=== PATIENT | male | born 1935 ===

== ENCOUNTER 2017-01-12 01:42 | Inpatient (IN) | payer OTHER ==
--- NOTE | 2017-01-12 02:03 | C.PDOC ---
History Of Present Illness Patient presents with 3 days of worsening productive cough. No chest pain or palpitations. Speakju fagann complete sentences. Tolerating po. Has been taking OTC , but no improvement of symptoms Time Seen by Provider: 01/12/17 02:02 Chief Complaint (Nursing): Cough, Cold, Congestion History Per: Patient History/Exam Limitations: no limitations Onset/Duration Of Symptoms: Days (3) Initiating Event: Upper Respiratory Illness Exacerbating Factor(s): Coughing Current Respiratory Medications: See Home Med List Severity: Moderate Pain Scale Rating Of: 4 Associated Symptoms: Productive Cough (greenish, brown). denies: Fever, Chills Reports Recently: Seen In ED, Treated By A Physician Recent travel outside of the [place]: No Additional History Per: Patient Past Medical History Reviewed: Historical Data, Nursing Documentation, Vital Signs Vital Signs: Last Vital Signs Temp 97.9 F 01/12/17 01:52 Pulse 73 01/12/17 01:52 Resp 20 01/12/17 01:52 BP 159/82 H 01/12/17 01:52 Pulse Ox 94 L 01/12/17 02:49 - Medical History PMH: HTN Surgical History: Pacemaker (LT CW WALL) Family History: States: No Known Family Hx - Social History Hx Alcohol Use: No Hx Substance Use: No - Immunization History Hx Tetanus Toxoid Vaccination: No Hx Influenza Vaccination: No Hx Pneumococcal Vaccination: No Review Of Systems Constitutional: Positive for: Malaise. Negative for: Fever, Chills Eyes: Negative for: Redness Cardiovascular: Negative for: Chest Pain, Palpitations Respiratory: Positive for: Cough, Shortness of Breath. Negative for: Hemoptysis Gastrointestinal: Negative for: Nausea, Vomiting, Abdominal Pain Genitourinary: Negative for: Dysuria Musculoskeletal: Negative for: Back Pain Skin: Negative for: Rash Neurological: Negative for: Weakness Psych: Negative for: Anxiety Physical Exam - Physical Exam Appears: No Acute Distress Skin: Warm, Dry Head: Normacephalic Eye(s): bilateral: Normal Inspection Oral Mucosa: Moist Neck: Supple Chest: Symmetrical Cardiovascular: Rhythm Regular Respiratory: Decreased Breath Sounds, No Rales, Rhonchi (throught out) Gastrointestinal/Abdominal: Soft, No Tenderness, No Distention Back: No CVA Tenderness Extremity: Normal ROM Extremity: Bilateral: Atraumatic, Normal Color And Temperature Pulses: Left Dorsalis Pedis: Normal, Right Dorsalis Pedis: Normal Neurological/Psych: Oriented x3, Normal Speech, Normal Cognition Gait: Steady ED Course And Treatment - Laboratory Results Result Diagrams: 01/12/17 02:11 01/12/17 02:11 ECG: Interpreted By Me, Viewed By Me ECG Rhythm: Sinus Rhythm (71), Nonspecific Changes (poss ivcd) O2 Sat by Pulse Oximetry: 94 Pulse Ox Interpretation: Normal - Radiology CXR: Interpreted by Me, Viewed By Me CXR Interpretation: Yes: Cardiomegaly, Other (pacer left chest, mild vasc congestion, rob infiltrate) Disposition Discussed With Dr.: Jose Smith Comment: accepted the pt on his service and took over the care at 3:42 AM Counseled Patient/Family Regarding: Studies Performed, Diagnosis - Disposition Disposition: HOSPITALIZED Disposition Time: 02:02 Condition: FAIR Forms: [facility] (Kazakh) - POA Present On Arrival: Poor Glycemic Control - Clinical Impression Clinical Impression: CHF (congestive heart failure), Pneumonia Decision To Admit - Pt Status Changed To: Hospital Disposition Of: Inpatient - Admit Certification Admit to Inpatient:: After my assessment, the patient will require hospitalization for at least two midnights. This is because of the severity of symptoms shown, intensity of services needed, and/or the medical risk in this patient being treated as an outpatient. - InPatient: Physician Admission Certification: I certify that this patient requires 2 or more midnights of care for the following reason:: After my assessment, the patient will require hospitalization for at least two midnights. This is because of the severity of symptoms shown, intensity of services needed, and/or the medical risk in this patient being treated as an outpatient. - . Bed Request Type: Telemetry Admitting Physician: Jose Smith Patient Diagnosis: CHF (congestive heart failure), Pneumonia
[2017-01-12] MEDS ORDERED: Albuterol-Ipratrop 3 mg / 0.5 (3 ml) UD ONE ×2 (02:15→02:37)
[2017-01-12] MEDS: Albuterol-Ipratrop 3 mg / 0.5 (3 ml) UD IH SCH ×3 (02:15→02:50)
[2017-01-12 02:16] LABS: BASO % 0.3 % (0.0-2.0); EOS % 0.1 % (0.0-4.0); HEMATOCRIT 41.4 % (35.0-51.0); LYMPH # 0.5 K/uL (1.0-4.3); LYMPH % 4.6 % (20.0-40.0); MEAN CELL VOLUME 92.2 fL (80.0-94.0); MEAN CORPUSCULAR HEMOGLOBIN 31.7 pg (27.0-31.0); MEAN CORPUSCULAR HGB CONC 34.3 g/dL (33.0-37.0); MEAN PLATELET VOLUME 8.2 fL (7.2-11.7); MONO # 1.2 K/uL (0.0-0.8); MONO % 10.7 % (0.0-10.0); PLATELET COUNT 141 K/uL (130-400); RED CELL DISTRIBUTION WIDTH 14.3 % (11.5-14.5); WHITE BLOOD COUNT 11.6 K/uL (4.8-10.8)
[2017-01-12 02:23] LABS: CHLORIDE 99 mmol/L (98-107)
[2017-01-12 02:24] LABS: POTASSIUM 4.2 mmol/L (3.6-5.2); SODIUM 140 mmol/L (132-148)
[2017-01-12 02:25] LABS: INR 1.5
[2017-01-12 02:26] LABS: BILIRUBIN,TOTAL 2.9 mg/dL (0.2-1.3); CARBON DIOXIDE 22 mmol/L (22-30); GFR AFRICAN-AMERICAN > 60
[2017-01-12 02:27] LABS: ALB/GLOB RATIO 1.7 (1.0-2.1); ALKALINE PHOSPHATASE 80 U/L (38-126); ALT/SGPT 85 U/L (21-72); AST/SGOT 65 U/L (17-59); BLOOD UREA NITROGEN 30 mg/dL (9-20); CALCIUM 8.7 mg/dl (8.6-10.4); GLUCOSE,RANDOM 136 mg/dL (75-110); TOTAL PROTEIN 6.9 g/dL (6.3-8.3)
[2017-01-12 02:52] LABS: VENOUS BLOOD GAS PCO2 40 mmHg (40-60); VENOUS BLOOD PH 7.43 (7.32-7.43)
[2017-01-12 03:00] LABS: BASOPHIL 1 % (0-2); NEUTROPHIL 80 % (50-75); TOTAL CELLS COUNTED 100
[2017-01-12] MEDS ORDERED: Piperacillin/Tazobact 3.375 gm 100 ML IVPB STA (03:30)
[2017-01-12] MEDS ORDERED: Piperacillin/Tazobact 3.375 gm 100 ML IVPB ONE (04:00)
[2017-01-12 04:33] LABS: RBC URINE 3 /hpf (0-3); URINE BILIRUBIN NEGATIVE (NEGATIVE); URINE BLOOD 2+ (NEGATIVE); URINE COLOR Yellow (YELLOW); URINE GLUCOSE (UA) NORMAL (Normal); URINE KETONE NEGATIVE (NEGATIVE); URINE LEUKOCYTE ESTERASE NEG Leu/uL (Negative); URINE PROTEIN 1+ mg/dL (NEGATIVE); WBC URINE 2 /hpf (0-5)
--- NOTE | 2017-01-12 08:06 | RAD ---
PROCEDURE: CHEST RADIOGRAPH, 1 VIEW HISTORY: Shortness of breath COMPARISON: None available. FINDINGS: LUNGS: Biapical pleural thickening with upper lobe granulomatous changes. Mild to moderate venous congestion. Linear atelectatic changes at the right costophrenic angle. PLEURA: As above. CARDIOVASCULAR: Cardiomegaly. Left-sided pacemaker lead. OSSEOUS STRUCTURES: No significant abnormalities. VISUALIZED UPPER ABDOMEN: Normal. OTHER FINDINGS: None. IMPRESSION: Biapical pleural thickening with upper lobe granulomatous changes. Mild to moderate venous congestion. Linear atelectatic changes at the right costophrenic angle.
[2017-01-12] MEDS: guaiFENesin DM 200 mg-20 mg/10 ml UD PO SCH ×2 (09:36→17:48)
[2017-01-12] MEDS: Albuterol-Ipratrop 3 mg / 0.5 (3 ml) UD IH PRN ×2 (13:12→19:13)
[2017-01-12] MEDS: Azithromycin 250 MG in Sodium Chloride 0.9% 250 ML IVPB SCH (13:35)
[2017-01-13 07:45] LABS: CHLORIDE 99 mmol/L (98-107); POTASSIUM 3.6 mmol/L (3.6-5.2); SODIUM 139 mmol/L (132-148)
[2017-01-13 07:47] LABS: ALB/GLOB RATIO 1.3 (1.0-2.1); AST/SGOT 90 U/L (17-59); BILIRUBIN,DIRECT 0.3 mg/dL (0.0-0.4); BILIRUBIN,TOTAL 1.3 mg/dL (0.2-1.3); BLOOD UREA NITROGEN 39 mg/dL (9-20); CARBON DIOXIDE 30 mmol/L (22-30); GFR AFRICAN-AMERICAN > 60; TOTAL PROTEIN 6.7 g/dL (6.3-8.3)
[2017-01-13 07:48] LABS: ALKALINE PHOSPHATASE 81 U/L (38-126); ALT/SGPT 82 U/L (21-72); CALCIUM 9.3 mg/dl (8.6-10.4); GLUCOSE,RANDOM 89 mg/dL (75-110)
[2017-01-13] MEDS: guaiFENesin DM 200 mg-20 mg/10 ml UD PO SCH ×2 (09:40→17:48)
--- NOTE | 2017-01-13 12:21 | HP ---
DATE: HISTORY OF PRESENT ILLNESS: The patient is an 81 years old male with history of multiple medical problems presented to emergency room with symptoms of congestion and cough for 4 days' duration. The patient was evaluated in the emergency room and he was found to have pulmonary congestion with increased proBNP to 9000. The patient was admitted for further management. The patient admits that he had fever and chills at home also. The patient was also started on IV antibiotics. The patient carries a diagnosis of congestive heart failure secondary to dilated cardiomyopathy, status post ICD placement. REVIEW OF SYSTEMS: Other review of systems is negative. ALLERGIES: NO KNOWN ALLERGIES. HOME MEDICATIONS: Include Diovan 160 mg daily, Coreg 6.25 mg twice a day, and aspirin 81 mg daily. SOCIAL HISTORY: No history of smoking, ETOH, or substance abuse. FAMILY HISTORY: Noncontributory. PAST MEDICAL HISTORY: As above. PHYSICAL EXAMINATION: GENERAL: The patient is in bed, comfortable, and not in any cardiopulmonary distress. VITAL SIGNS: Blood pressure 121/59, temperature 98.7, respiratory rate 20, and pulse 70. HEENT: Pupils equal and reactive to light. Normal appearing mucosa of the conjunctivae, oropharyngeal, and nasal membrane mucosa. NECK: Supple. No JVD. No carotid bruit. No lymph node. No thyromegaly. CHEST AND LUNGS: Bilaterally symmetrical expansion with good air exchange. No rales. No rhonchi. The patient has bilateral rhonchi with prolonged expiration. CARDIOVASCULAR: PMI not localized. S1 and S2. No additional sounds. ABDOMEN: Normoactive bowel sounds. No tenderness. No organomegaly. No masses. EXTREMITIES: No cyanosis. No clubbing. No edema. CENTRAL NERVOUS SYSTEM: Alert, awake, and oriented x3. No neurological deficits could be appreciated. ASSESSMENT: 1. Exacerbation of congestive heart failure, acute on top of chronic systolic and diastolic. 2. Clinical pneumonia. 3. Hyperactive airways with bronchospasm. PLAN: Continue IV diuretics as well as IV antibiotics and start the patient on DuoNeb nebulizer. Jose Smith MD
[2017-01-13] MEDS: Azithromycin 250 MG in Sodium Chloride 0.9% 250 ML IVPB SCH (12:37)
[2017-01-13] MEDS: MethylPREDNISolone 40 mg Vial IVP SCH ×2 (12:38→19:24)
[2017-01-14 01:01] VITALS: RESP 20
--- NOTE | 2017-01-14 02:03 | PN ---
SUBJECTIVE: The patient is seen today on 01/13/2017, he still has wheezing and cough. PHYSICAL EXAMINATION VITAL SIGNS: Blood pressure is 153/67, temperature 98.4, respiratory rate 20, and pulse 72. HEENT: Pupils equal and reactive to light. Normal appearing mucosa of the conjunctivae, oropharyngeal, and nasal membrane mucosa. NECK: Supple. No JVD. No carotid bruit. No lymph node. No thyromegaly. CHEST AND LUNGS: Bilaterally symmetrical expansion with good air exchange. No rales. The patient has bilateral rhonchi is scattered all over the lung miller. CARDIOVASCULAR: PMI not localized. S1 and S2. No additional sounds. ABDOMEN: Normoactive bowel sounds. No tenderness. No organomegaly. No masses. EXTREMITIES: No cyanosis. No clubbing. No edema. CENTRAL NERVOUS SYSTEM: Alert, awake, and oriented x2. No neurological deficits could be appreciated. ASSESSMENT: 1. Community-acquired pneumonia. 2. Hyperactive airway with bronchospasm. 3. Congestive heart failure. PLAN: Continue current medications of Solu-Medrol 40 mg IV q. 8 hours and continue current antibiotics and bronchodilators. Jose Smith MD
[2017-01-14] MEDS: MethylPREDNISolone 40 mg Vial IVP SCH ×3 (02:53→19:10)
[2017-01-14] MEDS: guaiFENesin DM 200 mg-20 mg/10 ml UD PO SCH ×2 (10:11→18:07)
[2017-01-14] MEDS: Azithromycin 250 MG in Sodium Chloride 0.9% 250 ML IVPB SCH (12:17)
[2017-01-14] MEDS: Sodium Chloride 0.9% 1,000 ML IV SCH ×2 (12:18→23:49)
[2017-01-14] MEDS: Promethazine DM 6.25 mg-15 mg/5 ml Syrup PO SCH ×2 (13:54→18:07)
[2017-01-14] MEDS ORDERED: Influenza Virus Vaccine (Afluria Inactive dont use ) IM ONE (14:00)
[2017-01-14] MEDS ORDERED: Pneumococcal 23-Valent Vaccine IM ONE (14:00)
[2017-01-15] MEDS: MethylPREDNISolone 40 mg Vial IVP SCH ×2 (02:55→10:38)
[2017-01-15] MEDS: Albuterol-Ipratrop 3 mg / 0.5 (3 ml) UD IH PRN (07:19)
[2017-01-15 08:15] LABS: CHLORIDE 98 mmol/L (98-107)
[2017-01-15 08:16] LABS: POTASSIUM 3.8 mmol/L (3.6-5.2); SODIUM 138 mmol/L (132-148)
[2017-01-15 08:18] LABS: ALB/GLOB RATIO 1.4 (1.0-2.1); ALKALINE PHOSPHATASE 68 U/L (38-126); AST/SGOT 39 U/L (17-59); BILIRUBIN,TOTAL 0.7 mg/dL (0.2-1.3); BLOOD UREA NITROGEN 46 mg/dL (9-20); CARBON DIOXIDE 24 mmol/L (22-30); GFR AFRICAN-AMERICAN > 60
[2017-01-15 08:19] LABS: ALT/SGPT 63 U/L (21-72); CALCIUM 8.9 mg/dl (8.6-10.4); GLUCOSE,RANDOM 168 mg/dL (75-110)
--- NOTE | 2017-01-15 08:57 | PN ---
DATE: 01/14/2017 SUBJECTIVE: The patient is seen today, 01/14/2017. He is not in any cardiopulmonary distress. Patient has cough and wheezing is less. PHYSICAL EXAMINATION VITAL SIGNS: Blood pressure is 134/75, temperature 97.9, respiratory rate 20, and pulse 62. HEENT: Pupils are equal and reactive to light. Normal-appearing mucosa of the conjunctivae, oropharyngeal and nasal membrane mucosa. NECK: Supple. No JVD. No carotid bruits. No lymph node. No thyromegaly. CHEST AND LUNGS: Bilateral symmetrical expansion. Good air exchange. No rales, no rhonchi. CARDIOVASCULAR SYSTEM: PMI not localized. S1 and S2. No additional sounds. ABDOMEN: Normoactive bowel sounds. No tenderness. No organomegaly. No masses. EXTREMITIES: No cyanosis, no clubbing, no edema. CENTRAL NERVOUS SYSTEM: Alert, awake, and oriented x3. No neurological deficit could be appreciated. ASSESSMENT: Exacerbation of chronic obstructive pulmonary disease, pneumonia with hyperactive airways, congestive heart failure, and rhabdomyolysis. PLAN: We will start the patient on IV fluids. Continue current antibiotics and steroids. Check CPK in the morning and chemistry. Jose Smith MD
[2017-01-15] MEDS ORDERED: Influenza Virus Vaccine (Afluria Inactive dont use ) IM ONE (10:00)
[2017-01-15] MEDS ORDERED: Pneumococcal 23-Valent Vaccine IM ONE (10:00)
[2017-01-15] MEDS: Promethazine DM 6.25 mg-15 mg/5 ml Syrup PO SCH ×2 (10:37→13:04)
[2017-01-15] MEDS: guaiFENesin DM 200 mg-20 mg/10 ml UD PO SCH ×2 (10:37→18:23)
[2017-01-15] MEDS ORDERED: Albuterol-Ipratrop 3 mg / 0.5 (3 ml) UD IH SCH (12:00)
[2017-01-15] MEDS: Azithromycin 250 MG in Sodium Chloride 0.9% 250 ML IVPB SCH (13:03)
[2017-01-15] MEDS: Nystatin 100,000 Units/ml Oral Susp 5 ml UD PO SCH ×2 (18:24→22:23)
--- NOTE | 2017-01-15 22:51 | PN ---
DAILY PROGRESS NOTE DATE: 01/15/2017 SUBJECTIVE: The patient is seen today 01/15/2017. He is having less cough. The patient has slight sore throat. PHYSICAL EXAMINATION VITAL SIGNS: Blood pressure 120/70, temperature 98.6, respiratory rate 18 and pulse is 82. HEENT: Pupils equal and reactive to light. Normal appearing mucosa of the conjunctivae. NECK: Supple. No JVD. No carotid bruit. No lymph node. No thyromegaly. CHEST AND LUNGS: Bilateral symmetrical expansion. Good air exchange. No rales. A few scattered rhonchi. CARDIOVASCULAR SYSTEM: PMI not localized. S1 and S2. No additional sounds. ABDOMEN: Normoactive bowel sounds. No tenderness. No organomegaly. No masses. EXTREMITIES: No cyanosis. No clubbing. No edema. CENTRAL NERVOUS SYSTEM: Alert, awake, and oriented x3. No neurological deficits could be appreciated. ASSESSMENT: 1. Pneumonia. 2. Acute bronchitis. 3. Status post pacemaker placement. 4. Congestive heart failure secondary to dilated cardiomyopathy. PLAN: Continue current IV antibiotics and taper off his steroid and we will give nystatin to swish and swallow for possible pharyngeal candidiasis from the effect of the steroid. Jose Smith MD
[2017-01-16 00:10] VITALS: O2SAT 96
[2017-01-16 08:24] VITALS: BP 156/87; TEMP 97.4
[2017-01-16] MEDS: guaiFENesin DM 200 mg-20 mg/10 ml UD PO SCH (10:18)
[2017-01-16] MEDS: Nystatin 100,000 Units/ml Oral Susp 5 ml UD PO SCH (10:19)
--- NOTE | 2017-01-16 12:01 | CARD ---
APPROVED REPORT EKG Measurement Heart [id number] <Conclusion> V paced rhythm Abnormal ECG
--- NOTE | 2017-01-16 17:12 | CP.PCM.PN ---
Subjective - Date & Time of Evaluation Date of Evaluation: 01/16/17 Time of Evaluation: 11:00 - Subjective Subjective: Alert, awake, no sob or chest pains, NAD. Objective - Vital Signs/Intake and Output Vital Signs (last 24 hours): Temp Pulse Resp BP Pulse Ox 97.4 F L 69 20 156/87 H 96 01/16/17 08:00 01/16/17 08:00 01/16/17 08:00 01/16/17 08:00 01/16/17 08:00 Intake and Output: 01/16/17 01/16/17 06:59 18:59 Output Total 300 Balance -300 - Labs Labs: 01/12/17 02:11 01/15/17 07:28 PT 16.7 SECONDS (9.7-12.2) H 01/12/17 02:11 INR 1.5 01/12/17 02:11 APTT 31 SECONDS (21-34) 01/12/17 02:11 Assessment and Plan - Assessment and Plan (Free Text) Assessment: Patient is seen and examined. Alert and orientedx3, decreased cough and congestion. No acute sob or chest pains. D/W DR Smith, plan to discharge home today on medrol dose pack. Patient agreed with the plan. Advised to follow up in the office in 1 week.
[2017-01-16 18:09] VITALS: PULSE 75
== END 2017-01-16 15:00 | disposition home or self-care (01) | DRG 291 ==
LOC: C.ER 01:42 → C.9E 03:41 → C.5S 04:15
PROVIDERS: ADMIT Internal Medicine; ATTEND Internal Medicine
DX: I11.0 Hypertensive heart disease with heart failure (principal); I50.43 Acute on chronic combined systolic (congestive) and diastolic (congestive) heart failure; J18.9 Pneumonia, unspecified organism; J44.0 Chronic obstructive pulmonary disease with (acute) lower respiratory infection; I42.0 Dilated cardiomyopathy; J44.1 Chronic obstructive pulmonary disease with (acute) exacerbation; M62.82 Rhabdomyolysis; Z79.82 Long term (current) use of aspirin; Z95.0 Presence of cardiac pacemaker

== ENCOUNTER 2017-02-02 10:39 | Observation (INO) | payer OTHER ==
[2017-02-02 11:45] LABS: BASO # 0.1 K/uL (0.0-0.2); BASO % 1.4 % (0.0-2.0); EOS # 0.1 K/uL (0.0-0.7); HEMOGLOBIN 12.6 g/dL (12.0-18.0); LYMPH # 0.7 K/uL (1.0-4.3); LYMPH % 13.6 % (20.0-40.0); MEAN CELL VOLUME 92.2 fL (80.0-94.0); MEAN CORPUSCULAR HEMOGLOBIN 31.6 pg (27.0-31.0); MEAN CORPUSCULAR HGB CONC 34.3 g/dL (33.0-37.0); MEAN PLATELET VOLUME 7.3 fL (7.2-11.7); MONO # 0.4 K/uL (0.0-0.8); MONO % 6.6 % (0.0-10.0); NEUT # 4.1 K/uL (1.8-7.0); NEUT % 76.4 % (50.0-75.0); RED CELL DISTRIBUTION WIDTH 14.6 % (11.5-14.5); WHITE BLOOD COUNT 5.4 K/uL (4.8-10.8)
[2017-02-02 11:59] LABS: ALBUMIN 3.9 g/dL (3.5-5.0)
[2017-02-02 12:02] LABS: ALB/GLOB RATIO 1.2 (1.0-2.1); AST/SGOT 30 U/L (17-59); GFR AFRICAN-AMERICAN > 60; GFR NON-AFRICAN AMERICAN > 60
[2017-02-02 12:03] LABS: ALT/SGPT 39 U/L (21-72); BLOOD UREA NITROGEN 25 mg/dL (9-20); CALCIUM 9.2 mg/dl (8.6-10.4)
--- NOTE | 2017-02-02 12:37 | C.PDOC ---
History Of Present Illness 81 y/o male c/o left foot pain and swelling for 10 days with no hx of trauma. pt has been seen by his pmd for this and prescribed colchicine and calamine lotion, no hx of gout in past. pt reports this is not helping with the pain. denies fever and chills. Time Seen by Provider: 02/02/17 11:13 Chief Complaint (Nursing): Lower Extremity Problem/Injury History Per: Patient History/Exam Limitations: no limitations Onset/Duration Of Symptoms: Days (10) Current Symptoms Are (Timing): Still Present Severity: Moderate Pain Scale Rating Of: 6 Recent travel outside of the [place]: No Past Medical History Reviewed: Historical Data, Nursing Documentation, Vital Signs Vital Signs: Last Vital Signs Temp 97.5 F L 02/02/17 15:53 Pulse 70 02/02/17 15:53 Resp 20 02/02/17 15:53 BP 142/76 02/02/17 15:53 Pulse Ox 97 02/02/17 15:53 - Medical History PMH: CHF, HTN Surgical History: Pacemaker Family History: States: Unknown Family Hx - Social History Hx Alcohol Use: Yes Hx Substance Use: No - Immunization History Hx Tetanus Toxoid Vaccination: No Hx Influenza Vaccination: No Hx Pneumococcal Vaccination: No Review Of Systems Constitutional: Negative for: Fever, Chills Cardiovascular: Negative for: Chest Pain Respiratory: Negative for: Cough, Shortness of Breath Gastrointestinal: Negative for: Abdominal Pain Musculoskeletal: Positive for: Foot Pain (left) Skin: Negative for: Rash Neurological: Negative for: Weakness, Numbness Physical Exam - Physical Exam Appears: Non-toxic, No Acute Distress Skin: Warm, Dry, Other (left foot erythematous and warm, exquisitely tender to 4th and 5th metatarsal, no deformity noted. ) Extremity: Other (+1 bilateral dp pulses, chronic skin changes bilateral lower legs. no posterior calf tenderness, no pedal edema. left foot with mild swelling. redness and tender. no deformity noted. nails with onchomycotic appearance, whitish skin between toes left foot with some residual pink (likley calamine) ) Neurological/Psych: Oriented x3, Normal Speech, Normal Cognition ED Course And Treatment - Laboratory Results Result Diagrams: 02/02/17 11:38 02/02/17 11:38 O2 Sat by Pulse Oximetry: 98 Medical Decision Making Medical Decision Makin pm unable ot leave message crow cell phone. mailbox full. message left with his answering service. [address] Smith, will place on obs for cellulitis and give iv antibiotics Disposition Discussed With .: Jose Smith - Disposition Disposition Time: 14:18 Condition: STABLE - Clinical Impression Clinical Impression: Cellulitis of left foot
--- NOTE | 2017-02-02 14:09 | RAD ---
PROCEDURE: Left Foot Radiographs. HISTORY: pain and swelling lateral foot COMPARISON: None. FINDINGS: BONES: No evidence of acute fracture. Small calcaneal spur seen. JOINTS: Moderate osteoarthritic and degenerative changes. SOFT TISSUES: Mild soft tissue swelling OTHER FINDINGS: None. IMPRESSION: No evidence of acute fracture or dislocation. Small calcaneus spur. . Arthritic and degenerative changes.
[2017-02-02] MEDS ORDERED: Saccharomyces Boulardi 250 mg Cap PO STA (14:16)
[2017-02-02 17:28] VITALS: RESP 20
[2017-02-02] MEDS: Clindamycin 300 MG in Sodium Chloride 0.9% 50 ML IVPB SCH (22:03)
[2017-02-03] MEDS: Clindamycin 300 MG in Sodium Chloride 0.9% 50 ML IVPB SCH ×3 (05:11→21:01)
[2017-02-03] MEDS: Saccharomyces Boulardi 250 mg Cap PO SCH (09:28)
--- NOTE | 2017-02-03 17:14 | CP.PCM.CON ---
History of Present Illness - History of Present Illness History of Present Illness: 81 y/o male patient with PMHx of HTN, COPD, CHF, Pacemaker placement was seen at bedside after request for podiatry consultation. Patient complains of Left foot pain lateral aspect accompanied with mild swelling for the past 10 days. Patient denies of any kind of trauma. Patient states that he was treated for gout with colchcine by pmd but without improvement. Patient denies hx of gout. Patient denies of any N/V/F/C or SOB today. Review of Systems - Constitutional Constitutional: As Per HPI Past Patient History - Past Medical History & Family History Past Medical History?: Yes - Past Social History Smoking Status: Never Smoked - CARDIAC Hx Cardiac Disorders: Yes Hx Congestive Heart Failure: Yes Hx Hypertension: Yes Hx Pacemaker: Yes - PULMONARY Hx Respiratory Disorders: No - NEUROLOGICAL Hx Neurological Disorder: No - HEENT Hx HEENT Problems: Yes Hx Deafness: Yes Other/Comment: hard of hearing - RENAL Hx Chronic Kidney Disease: No Hx Dialysis: No - ENDOCRINE/METABOLIC Hx Endocrine Disorders: No - HEMATOLOGICAL/ONCOLOGICAL Hx Blood Disorders: No - INTEGUMENTARY Hx Dermatological Problems: Yes Hx Cellulitis: Yes (left lower extremity.) - MUSCULOSKELETAL/RHEUMATOLOGICAL Hx Musculoskeletal Disorders: No Hx Falls: No - GASTROINTESTINAL Hx Gastrointestinal Disorders: No - GENITOURINARY/GYNECOLOGICAL Hx Genitourinary Disorders: Yes Hx Prostate Problems: Yes - PSYCHIATRIC Hx Psychophysiologic Disorder: No Hx Substance Use: No - SURGICAL HISTORY Hx Surgeries: Yes Other/Comment: pacemaker - ANESTHESIA Hx Anesthesia: Yes Hx Anesthesia Reactions: No Hx Malignant Hyperthermia: No Has any member of the family had a problem w/ anesthesia?: No Meds Allergies/Adverse Reactions: Allergies Allergy/AdvReac Type Severity Reaction Status Date / Time No Known Allergies Allergy Verified 02/02/17 10:49 - Medications Medications: Current Medications Aspirin (Ecotrin) 81 mg PO DAILY [facility] Last Admin: 02/03/17 10:30 Dose: 81 mg Carvedilol (Coreg) 6.25 mg PO BID [facility] Last Admin: 02/03/17 09:24 Dose: 6.25 mg Clopidogrel Bisulfate (Plavix) 75 mg PO QOD6 [facility] Heparin Sodium (Porcine) (Heparin) 5,000 units SC Q12H [facility] Last Admin: 02/03/17 09:24 Dose: 5,000 units Clindamycin Phosphate 300 mg/ (Sodium Chloride) 52 mls @ 104 mls/hr IVPB Q8H [facility] Last Admin: 02/03/17 13:34 Dose: 104 mls/hr Losartan Potassium (Cozaar) 100 mg PO DAILY [facility] Last Admin: 02/03/17 09:28 Dose: 100 mg Saccharomyces Boulardii (Florastor) 250 mg PO DAILY [facility] Last Admin: 02/03/17 09:28 Dose: 250 mg Physical Exam - Constitutional Appears: Well, Non-toxic, No Acute Distress - Head Exam Head Exam: ATRAUMATIC - Eye Exam Eye Exam: EOMI, PERRL - ENT Exam ENT Exam: Mucous Membranes Moist - Neck Exam Neck exam: Positive for: Normal Inspection - Respiratory Exam Respiratory Exam: NORMAL BREATHING PATTERN. absent: Rales, Wheezes - Cardiovascular Exam Cardiovascular Exam: REGULAR RHYTHM - Rectal Exam Rectal Exam: Deferred - Extremities Exam Additional comments: Left lower extremity exam DERM: No open lesion noted. No drainage noted. Mild erythema is noted to lateral aspect of left foot accompanied by mild swelling. Interdigital maceration noted to 4th inter digital space of Left foot. No probe to bone. Mild mal-odor noted. 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 ORTHO: Pain on palpation to lateral aspect of Left foot along the 5th metatarsal diaphysis NEURO: Gross sensation intact - Neurological Exam Neurological exam: Alert, Oriented x3 - Psychiatric Exam Psychiatric exam: Normal Affect, Normal Mood - Skin Skin Exam: Normal Color, Warm Results - Vital Signs Recent Vital Signs: Last Vital Signs Temp 98.4 F 02/03/17 15:51 Pulse 74 02/03/17 15:51 Resp 20 02/03/17 15:51 BP 145/85 02/03/17 15:51 Pulse Ox 96 02/03/17 15:51 - Labs Result Diagrams: 02/02/17 11:38 02/02/17 11:38 Assessment & Plan - Assessment and Plan (Free Text) Assessment: 81 yo male patient presenting with left foot cellulitis secondary to interdigital maceration Plan: Patient was seen, evaluated and treated with all questions and concerns addressed labs and vitals reviewed; afebrile, 5.4 WBC discussed in detail with attending patient to continue IV antibiotics Dressing applied to left foot using Betadine soaked DSD, 4x4, Kerlix Podiatr y will continue to follow in house
[2017-02-03] MEDS: Clotrimazole 1% Cream(30 gm) TOP SCH (20:00)
[2017-02-04] MEDS: Clindamycin 300 MG in Sodium Chloride 0.9% 50 ML IVPB SCH ×3 (05:59→21:27)
[2017-02-04] MEDS: Saccharomyces Boulardi 250 mg Cap PO SCH (09:35)
--- NOTE | 2017-02-04 09:39 | HP ---
HISTORY OF PRESENT ILLNESS: This is an 81-year-old male with history of multiple medical problems including dilated cardiomyopathy status post ICD placement, on medications, who presented to emergency room with symptoms of pain on the left foot. The patient has been complaining of this pain for about 6 days. The patient was seen as an outpatient and was started on colchicine with a thought of possible gouty arthritis. The patient showed no improvement, and there was continuous redness and tenderness in the area of the dorsum of the left foot. The patient denied to have any trauma. The patient admitted that he has difficulty walking in his foot or putting pressure due to the continuous pain. REVIEW OF SYSTEMS: Other review of systems is negative. ALLERGIES: NO KNOWN ALLERGY. HOME MEDICATIONS: Plavix 75 mg every other day, calamine lotion for herpes zoster lesions that have been crusting, Diovan 160 mg, carvedilol 6.25 mg twice a day, aspirin 81 mg daily. PAST MEDICAL HISTORY: Dilated cardiomyopathy status post ICD placement and status post herpes zoster with crusting lesions. SOCIAL HISTORY: No history of smoking, EtOH, or substance abuse. FAMILY HISTORY: Not contributory. PHYSICAL EXAMINATION: GENERAL: The patient is in bed, comfortable at the time of his examination. VITAL SIGNS: Blood pressure 149/84, temperature 98.2, respiratory rate 20, and pulse 77. HEENT: Pupils equal and reactive to light. Normal-appearing mucosa of the conjunctivae, oropharyngeal and nasal membrane mucosa. NECK: Supple. No JVD. No carotid bruit. No lymph node. No thyromegaly. CHEST AND LUNGS: Bilateral symmetrical expansion. Good air exchange. No rales. No rhonchi. CARDIOVASCULAR SYSTEM: PMI not localized. S1, S2. No additional sounds. ABDOMEN: Normoactive bowel sounds. No tenderness. No organomegaly. No masses. EXTREMITIES: No cyanosis. No clubbing. There is swelling of the left foot with tenderness on the dorsum of the third, fourth and fifth metatarsals and redness. CENTRAL NERVOUS SYSTEM: Alert, awake, and oriented x3. No neurological deficits could be appreciated except the patient has sensorineural deafness bilaterally. ASSESSMENT: 1. Cellulitis of the left foot. 2. Dilated cardiomyopathy status post implantable cardioverter-defibrillator placement. PLAN: 1. We will start the patient on antibiotics clindamycin 300 mg every 8 hours with probiotic. 2. Resume patient's home medications. 3. We will review the foot x-ray and will follow Podiatry recommendations. [facility] MD Luis
[2017-02-04] MEDS: Clotrimazole 1% Cream(30 gm) TOP SCH ×2 (10:22→17:37)
--- NOTE | 2017-02-04 11:22 | CP.PCM.PN ---
Subjective - Date & Time of Evaluation Date of Evaluation: 02/04/17 Time of Evaluation: 11:19 - Subjective Subjective: 81 y/o male patient with with pacemaker was seen at bedside this AM concerning Left foot pain lateral aspect accompanied with mild swelling. AAO x3. Patient was resting comfortably in bed at the time of visit. Patient states that he feels much better in terms of pain to his left foot. Patient states that Dr. Smith applied Silvadene to left 4th interdigital space. Floor nurse imformed me kenia the patient himself took off the dressing this morning. Patient denies of any N/V/F/C or SOB today. Objective - Vital Signs/Intake and Output Vital Signs (last 24 hours): Temp Pulse Resp BP Pulse Ox 97.8 F 70 20 138/69 95 02/04/17 07:26 02/04/17 07:26 02/04/17 07:26 02/04/17 07:26 02/04/17 07:26 Intake and Output: 02/04/17 02/04/17 06:59 18:59 Intake Total 250 Balance 250 - Medications Medications: Current Medications Aspirin (Ecotrin) 81 mg PO DAILY [facility] Last Admin: 02/04/17 09:35 Dose: 81 mg Carvedilol (Coreg) 6.25 mg PO BID [facility] Last Admin: 02/04/17 09:35 Dose: 6.25 mg Clopidogrel Bisulfate (Plavix) 75 mg PO QOD6 [facility] Last Admin: 02/03/17 17:22 Dose: 75 mg Clotrimazole (Lotrimin 1%) 0 gm TOP BID [facility] Last Admin: 02/03/17 20:00 Dose: 1 applic Heparin Sodium (Porcine) (Heparin) 5,000 units SC Q12H [facility] Last Admin: 02/04/17 09:35 Dose: 5,000 units Clindamycin Phosphate 300 mg/ (Sodium Chloride) 52 mls @ 104 mls/hr IVPB Q8H [facility] Last Admin: 02/04/17 05:59 Dose: 104 mls/hr Losartan Potassium (Cozaar) 100 mg PO DAILY [facility] Last Admin: 02/04/17 09:35 Dose: 100 mg Saccharomyces Boulardii (Florastor) 250 mg PO DAILY [facility] Last Admin: 02/04/17 09:35 Dose: 250 mg - Labs Labs: 02/02/17 11:38 02/02/17 11:38 - Constitutional Appears: Well, Non-toxic, No Acute Distress - Head Exam Head Exam: ATRAUMATIC - Extremities Exam Additional comments: Left lower extremity exam DERM: No open lesion noted. No drainage noted. Mild erythema is noted to lateral aspect of left foot accompanied by mild swelling. Interdigital maceration noted to 4th inter digital space of Left foot. No probe to bone. Mild mal-odor noted. VASC: Palpable DP and PT noted 1/4, STABBER less than 3 seconds noted to all digits. ORTHO: Pain on palpation to lateral aspect of Left foot along the 5th metatarsal diaphysis NEURO: Gross sensation intact - Neurological Exam Neurological Exam: Alert, Awake, Oriented x3 - Psychiatric Exam Psychiatric exam: Normal Affect, Normal Mood - Skin Skin Exam: Normal Color, Warm Assessment and Plan - Assessment and Plan (Free Text) Assessment: 81 yo male patient presenting with left foot cellulitis secondary to interdigital maceration Plan: Patient was seen, evaluated and treated with all questions and concerns addressed labs and vitals reviewed; afebrile discussed in detail with attending patient to continue IV antibiotics Dressing applied to left foot using Betadine soaked DSD, 4x4, Kerlix Xray (-) of acute fracture Patient is stable from podiatry standpoint Podiatry will continue to follow in house
--- NOTE | 2017-02-04 15:32 | VASCLAB ---
PROCEDURE: Lower Extremity Venous Duplex Exam. HISTORY: left foot pain, swelling; r/o dvt PRIORS: None. TECHNIQUE: Bilateral common femoral, femoral, popliteal and posterior tibial, peroneal and great saphenous veins were evaluated. Flow was assessed with color Doppler, compressibility, assessment of phasic flow and augmentation response. Report prepared by SHERYL Concepcion, RVT FINDINGS: RIGHT: 1. Common Femoral Vein: 1.1. Compressibility - Fully compressible: Thrombus - None : Flow - Phasic: Augmentation -Normal: Reflux - None. 2. Femoral Vein: 2.1. Compressibility - Fully compressible: Thrombus - None : Flow - Phasic: Augmentation -Normal: Reflux - None. 3. Popliteal Vein: 3.1. Compressibility - Fully compressible: Thrombus - None : Flow - Phasic: Augmentation -Normal: Reflux - None. 4. Posterior Tibial Vein: 4.1. Compressibility - Fully compressible: Thrombus - None: Flow - Phasic: Augmentation -Normal: Reflux - None. 5. Peroneal Vein: 5.1. Compressibility - Fully compressible: Thrombus - None: Flow - Phasic: Augmentation -Normal: Reflux - None. 6. Great Saphenous Vein: 6.1. Compressibility - Fully compressible: Thrombus - None: Flow - Phasic: Augmentation - Normal: Reflux - Severe. LEFT: 1. Common Femoral Vein: 1.1. Compressibility - Fully compressible: Thrombus - None: Flow - Phasic: Augmentation -Normal: Reflux - None. 2. Femoral Vein: 2.1. Compressibility - Fully compressible: Thrombus - None: Flow - Phasic: Augmentation -Normal: Reflux - None. 3. Popliteal Vein: 3.1. Compressibility - Fully compressible: Thrombus - None : Flow - Phasic: Augmentation -Normal: Reflux - None. 4. Posterior Tibial Vein: 4.1. Compressibility - Fully compressible: Thrombus - None: Flow - Phasic: Augmentation -Normal: Reflux - None. 5. Peroneal Vein: 5.1. Compressibility - Fully compressible: Thrombus - None: Flow - Phasic: Augmentation -Normal: Reflux - None. 6. Great Saphenous Vein: 6.1. Compressibility - Fully compressible: Thrombus - None: Flow - Phasic: Augmentation - Normal: Reflux - None. OTHER FINDINGS: Right: Valvular incompetence of the right greater saphenous vein. Left: None significant. IMPRESSION: Right: No evidence of deep or superficial vein thrombosis of the right lower extremity. Left: No evidence of deep or superficial vein thrombosis of the left lower extremity. Normal valve function noted of the left side.
--- NOTE | 2017-02-05 00:31 | PN ---
DATE: 02/04/2017 DAILY PROGRESS NOTE SUBJECTIVE: The patient is seen today on 02/04/2017. He is not in any cardiopulmonary distress. PHYSICAL EXAMINATION: VITAL SIGNS: Blood pressure is 138/69, temperature 97.3, respiratory rate 20, and pulse 76. HEENT: Pupils are equal and reactive to light. Normal-appearing mucosa of the conjunctivae, oropharyngeal and nasal membrane mucosa. NECK: Supple. No JVD. No carotid bruit. No lymph node. No thyromegaly. CHEST AND LUNGS: Bilateral symmetrical expansion. Good air exchange. No rales. No rhonchi. CARDIOVASCULAR: PMI not localized. S1 and S2. No additional sounds. ABDOMEN: Normoactive bowel sounds. No tenderness. No organomegaly. No masses. EXTREMITIES: No cyanosis. No clubbing. No edema. The left foot has tenderness on the dorsal aspect of the foot. CENTRAL NERVOUS SYSTEM: Alert, awake, and oriented x2. No neurological deficits except sensorineural deafness. ASSESSMENT: An 81-year-old with left foot cellulitis secondary to interdigital tinea pedis and maceration. PLAN: Continue clindamycin 300 mg three times a day. We will use clotrimazole for the interdigital tinea pedis. Continue current medications. Jose Smith MD
[2017-02-05] MEDS: Clindamycin 300 MG in Sodium Chloride 0.9% 50 ML IVPB SCH ×2 (06:03→13:11)
[2017-02-05 07:58] VITALS: BP 125/66; PULSE 73; TEMP 97.9; O2SAT 96
[2017-02-05] MEDS: Clotrimazole 1% Cream(30 gm) TOP SCH (09:10)
[2017-02-05] MEDS: Saccharomyces Boulardi 250 mg Cap PO SCH (09:11)
[2017-02-05] MEDS ORDERED: Influenza Vaccine 60 mcg/0.5 mL SYR (4YR UP) IM ONE (10:00)
[2017-02-05] MEDS ORDERED: Pneumococcal 23-Valent Vaccine IM ONE (10:00)
--- NOTE | 2017-02-05 12:09 | CP.PCM.PN ---
Subjective - Date & Time of Evaluation Date of Evaluation: 02/05/17 Time of Evaluation: 12:06 - Subjective Subjective: Podiatry note for Dr. Iglesias 81 y/o male patient with with pacemaker was seen at bedside this AM concerning Left foot pain lateral aspect accompanied with mild swelling. AAO x3. Patient was resting comfortably in bed at the time of visit. Patient denies of any pain and notices the decrease in redness to the foot. Patient states that he feels greeat and wishes to go home. Patient denies of any N/V/F/C or SOB today. Objective - Vital Signs/Intake and Output Vital Signs (last 24 hours): Temp Pulse Resp BP Pulse Ox 97.9 F 73 20 125/66 96 02/05/17 07:56 02/05/17 07:56 02/05/17 07:56 02/05/17 07:56 02/05/17 07:56 Intake and Output: 02/05/17 02/05/17 06:59 18:59 Intake Total 300 Balance 300 - Medications Medications: Current Medications Aspirin (Ecotrin) 81 mg PO DAILY [facility] Last Admin: 02/05/17 09:11 Dose: 81 mg Carvedilol (Coreg) 6.25 mg PO BID [facility] Last Admin: 02/05/17 09:11 Dose: 6.25 mg Clopidogrel Bisulfate (Plavix) 75 mg PO QOD6 [facility] Last Admin: 02/03/17 17:22 Dose: 75 mg Clotrimazole (Lotrimin 1%) 0 gm TOP BID [facility] Last Admin: 02/05/17 09:10 Dose: 1 applic Colchicine (Colocrys) 0.6 mg PO DAILY [facility] Last Admin: 02/05/17 09:12 Dose: 0.6 mg Heparin Sodium (Porcine) (Heparin) 5,000 units SC Q12H [facility] Last Admin: 02/05/17 09:11 Dose: 5,000 units Clindamycin Phosphate 300 mg/ (Sodium Chloride) 52 mls @ 104 mls/hr IVPB Q8H [facility] Last Admin: 02/05/17 06:03 Dose: 104 mls/hr Losartan Potassium (Cozaar) 100 mg PO DAILY [facility] Last Admin: 02/05/17 09:11 Dose: 100 mg Saccharomyces Boulardii (Florastor) 250 mg PO DAILY [facility] Last Admin: 02/05/17 09:11 Dose: 250 mg - Labs Labs: 02/02/17 11:38 02/02/17 11:38 - Constitutional Appears: Well, Non-toxic, No Acute Distress - Head Exam Head Exam: ATRAUMATIC - Extremities Exam Additional comments: Left lower extremity exam DERM: No open lesion noted. No drainage noted. NO erythema is noted to lateral aspect of left foot accompanied by mild swelling. Interdigital maceration noted to 4th inter digital space of Left foot. No probe to bone. No mal-odor noted. VASC: Palpable DP and PT noted 1/4, [employer] less than 3 seconds noted to all digits. ORTHO: Pain on palpation to lateral aspect of Left foot along the 5th metatarsal diaphysis NEURO: Gross sensation intact - Neurological Exam Neurological Exam: Alert, Awake, Oriented x3 - Psychiatric Exam Psychiatric exam: Normal Affect, Normal Mood - Skin Skin Exam: Normal Color, Warm Assessment and Plan - Assessment and Plan (Free Text) Assessment: 81 yo male patient presenting with left foot cellulitis secondary to interdigital maceration Plan: Patient was seen, evaluated and treated with all questions and concerns addressed labs and vitals reviewed; afebrile discussed in detail with attending patient to continue IV antibiotics No dressing applied. Xray (-) of acute fracture Patient is stable from podiatry standpoint Podiatry will continue to follow in house
--- NOTE | 2017-02-05 16:48 | PCM.HF ---
Heart Failure Core Measure - Heart Failure Ejection Fraction: 40 % or Greater (TO BE ASSESS IN THE OFFICE OUT PATIENT) Left Ventricular Function to be assessed after discharge: Yes TAMEKA Inhibitor Prescribed: No Contraindication/Reason for not providing: on ARB Beta-Edward Prescribed: Carvedilol Angiotensin II Receptor Edward Prescribed: Yes AnticoagulationTherapy for Atrial Fibrillation/Atrialflutter: No Contraindication/Reason for not providing: NO HX AFIB Aldosterone Antagonist Prescribed: No Contraindication/Reason for not providing: BP CONTROLLED Hydralazine Nitrate Prescribed: No Contraindication/Reason for not providing: BP CONTROLLED Implantable Cardioverter Defibrillator Therapy: Yes Contraindication/Reason for not providing: ICD Cardiac Resynchronization Therapy Prescribed: No Contraindication/Reason for not providing: NOT INDICATED - Follow up Will be discharged to: Home Follow Up Date (must be within 7 days from discharge): 02/11/17 Follow Up Time: 09:00
--- NOTE | 2017-02-06 05:21 | DS ---
REASON FOR ADMISSION: This is an 81-year-old male with history of multiple medical problems, who was admitted for cellulitis of the left foot. COURSE OF HOSPITALIZATION: The patient was admitted to medical floor and he was started on clindamycin IV as well as probiotics. The patient had a Podiatry consult done. The source of infection is most probably the cracking of the skin in between the digits due to the Tinea pedis. The patient also was started on clotrimazole. The patient was discharged home to continue clindamycin for another 5 days and probiotics and will followed up as an outpatient. FINAL DIAGNOSES: 1. Cellulitis of the left foot. 2. Tenia pedis. 3. Congestive heart failure, both chronic, systolic and diastolic. 4. Dilated cardiomyopathy. 5. Status post defibrillator placement. 6. Chronic atrial fibrillation and the patient chose not to be on any anticoagulation therapy. [facility] MD Luis
== END 2017-02-05 15:43 | disposition home or self-care (01) ==
LOC: C.ER 10:39 → C.9E 14:17 → C.3T 17:02 → INTOOBSV 02-03 18:47 → OBSVTOIN 02-03 18:47
PROVIDERS: ADMIT Internal Medicine; ATTEND Internal Medicine
DX: L03.116 Cellulitis of left lower limb (principal); B35.3 Tinea pedis; I11.0 Hypertensive heart disease with heart failure; I50.42 Chronic combined systolic (congestive) and diastolic (congestive) heart failure; I42.0 Dilated cardiomyopathy; J44.9 Chronic obstructive pulmonary disease, unspecified; I48.2 Chronic atrial fibrillation; K21.9 Gastro-esophageal reflux disease without esophagitis; B02.9 Zoster without complications; M10.9 Gout, unspecified; H91.90 Unspecified hearing loss, unspecified ear; Z79.82 Long term (current) use of aspirin; Z95.810 Presence of automatic (implantable) cardiac defibrillator
CPT/HCPCS: 73630; 80053; 85025; 87040; 93970; 97110; 97116; 97162; 99285; G0378; G8978; G8979; J1644